=== PATIENT | female | born 1955 | race Caucasian/White ===

== ENCOUNTER 2017-10-11 22:08 | Emergency (ER) | payer OTHER ==
[~2017-10-11] VITALS: Ht 152.4 cm; Wt 68.0 kg
[~2017-10-11 22:08] MED LIST: SERTRALINE HYD100 MG PO
[2017-10-11 22:18] VITALS: Ht 152.4 cm; Wt 68.0 kg
[2017-10-11 22:44] LABS: BASOPHIL % 0.5 % (0-2); PLATELET COUNT 197 x10^3mcL (130-400); RED CELL DISTRIBUTION WIDTH 12.9 % (11.5-14.5)
[2017-10-11 22:57] LABS: CALCIUM 8.8 mg/dL (8.5-10.1); CARBON DIOXIDE 26.4 mmol/L (21-32); CHLORIDE SERUM 104 mmol/L (98-107); CREATININE SERUM 0.9 mg/dL (0.6-1.0); GFR1 > 60 mL/min; GLUCOSE SERUM 111 mg/dL (74-106); POTASSIUM SERUM 3.6 mmol/L (3.5-5.1); SODIUM SERUM 139 mmol/L (136-145)
[2017-10-11 22:58] LABS: ALBUMIN 3.9 g/dL (3.4-5.0)
[2017-10-11 23:12] LABS: ALKALINE PHOSPHATASE 89 U/L (46-116); ALT/SGPT 37 U/L (14-59); AST/SGOT 34 U/L (15-37); BILIRUBIN TOTAL 0.35 mg/dL (0.20-1.00); TOTAL PROTEIN, SERUM 7.9 g/dL (6.4-8.2)
[2017-10-11 23:57] VITALS: BP 137/90
== END 2017-10-11 23:57 | disposition home or self-care (01) ==
LOC: ED 22:08
PROVIDERS: Emergency Medicine
DX: F41.9 Anxiety disorder, unspecified (principal); F32.9 Major depressive disorder, single episode, unspecified
CPT/HCPCS: 36415; Q0092

== ENCOUNTER 2018-01-20 08:10 | Emergency (ER) | payer OTHER ==
[~2018-01-20] VITALS: Ht 154.9 cm; Wt 68.0 kg
[2018-01-20 08:24] VITALS: Ht 154.9 cm; Wt 68.0 kg
[2018-01-20 11:06] VITALS: BP 117/87
== END 2018-01-20 11:06 | disposition home or self-care (01) ==
LOC: ED 08:10
DX: S13.4XXA Sprain of ligaments of cervical spine, initial encounter (principal); S63.616A Unspecified sprain of right little finger, initial encounter; S20.02XA Contusion of left breast, initial encounter; M54.9 Dorsalgia, unspecified; Z88.0 Allergy status to penicillin; V49.9XXA Car occupant (driver) (passenger) injured in unspecified traffic accident, initial encounter; Y93.89 Activity, other specified; Y92.89 Other specified places as the place of occurrence of the external cause; Y99.8 Other external cause status

== ENCOUNTER 2018-07-22 07:08 | Emergency (ER) | payer OTHER ==
[~2018-07-22] VITALS: Ht 152.4 cm; Wt 64.4 kg
[2018-07-22 07:10] VITALS: Ht 152.4 cm; Wt 64.4 kg
[2018-07-22 07:36] LABS: CALCIUM 9.1 mg/dL (8.5-10.1); CARBON DIOXIDE 22.9 mmol/L (21-32); CREATININE SERUM 1.2 mg/dL (0.6-1.0); POTASSIUM SERUM 3.9 mmol/L (3.5-5.1)
[2018-07-22 07:40] LABS: BASOPHIL % 0.7 % (0-2); BILIRUBIN TOTAL 0.6 mg/dL (0.20-1.00); CHOLESTEROL/HDL RATIO 4.4; PLATELET COUNT 190 x10^3mcL (130-400); RED CELL DISTRIBUTION WIDTH 13.1 % (11.5-14.5); TOTAL PROTEIN, SERUM 8.2 g/dL (6.4-8.2)
[2018-07-22 07:52] LABS: FREE T4 0.97 ng/dL (0.76-1.46); FREE THYROXINE INDEX 2.5 ug/dL (1.4-4.5); T4(THYROXINE) 7.7 ug/dL (4.7-13.3)
[2018-07-22 08:08] LABS: T3 TOTAL 1.19 ng/mL
[2018-07-22 08:27] VITALS: BP 129/72
== END 2018-07-22 08:27 | disposition home or self-care (01) ==
LOC: ED 07:08
PROVIDERS: Specialist
DX: R55 Syncope and collapse (principal); F41.9 Anxiety disorder, unspecified; R06.4 Hyperventilation; F43.9 Reaction to severe stress, unspecified; M41.9 Scoliosis, unspecified; Z88.0 Allergy status to penicillin
CPT/HCPCS: 36415; 83880; 84439; Q0092

== ENCOUNTER 2018-11-15 15:08 | Emergency (ER) | payer OTHER ==
[~2018-11-15] VITALS: Ht 152.4 cm; Wt 64.9 kg
[2018-11-15 15:15] VITALS: Ht 152.4 cm; Wt 64.9 kg
[2018-11-15 16:22] VITALS: BP 120/76
== END 2018-11-15 16:22 | disposition home or self-care (01) ==
LOC: ED 15:08
DX: J40 Bronchitis, not specified as acute or chronic (principal); F41.9 Anxiety disorder, unspecified; Z88.0 Allergy status to penicillin